=== PATIENT | male | born 1985 | race Caucasian/White ===

== ENCOUNTER 2016-12-01 12:05 | Emergency (ER) | payer OTHER ==
[2016-12-01 12:13] VITALS: BP 127/64
== END 2016-12-01 14:06 | disposition home or self-care (01) ==
LOC: ED 12:05
DX: J02.9 Acute pharyngitis, unspecified (principal); E03.9 Hypothyroidism, unspecified; F17.210 Nicotine dependence, cigarettes, uncomplicated
CPT/HCPCS: 99406

== ENCOUNTER 2017-11-03 14:38 | Emergency (ER) | payer OTHER ==
[~2017-11-03] VITALS: Ht 170.2 cm; Wt 65.8 kg
[2017-11-03 14:38] VITALS: BP 127/83; Ht 170.2 cm; Wt 65.8 kg
== END 2017-11-03 15:35 | disposition home or self-care (01) ==
LOC: ED 14:38
DX: J06.9 Acute upper respiratory infection, unspecified (principal); F17.210 Nicotine dependence, cigarettes, uncomplicated; E03.9 Hypothyroidism, unspecified; Z71.6 Tobacco abuse counseling
CPT/HCPCS: 99406; Q0092